=== PATIENT | female | born 1985 | race Caucasian/White ===

== ENCOUNTER 2023-07-15 11:01 | Emergency (ER) | payer OTHER ==
[~2023-07-15] VITALS: Ht 165.1 cm; Wt 63.5 kg
[2023-07-15 11:13] VITALS: RESP 60; TEMP 97.6
== END 2023-07-15 12:20 | disposition home or self-care (01) ==
LOC: SED 11:01
DX: B34.9 Viral infection, unspecified (principal); R50.9 Fever, unspecified; Z79.899 Other long term (current) drug therapy
CPT/HCPCS: 99282